=== PATIENT | female | born 1975 | race Two or more races ===

== ENCOUNTER 2018-06-28 12:13 | Outpatient (CLI) | payer OTHER | END 2018-06-28 12:20 | disposition home or self-care (01) | LOC: SONOGRAMA 12:13 | DX: N84.0 Polyp of corpus uteri (principal); N83.292 Other ovarian cyst, left side; N83.291 Other ovarian cyst, right side; N60.11 Diffuse cystic mastopathy of right breast; N60.12 Diffuse cystic mastopathy of left breast; R87.610 Atypical squamous cells of undetermined significance on cytologic smear of cervix (ASC-US); R87.810 Cervical high risk human papillomavirus (HPV) DNA test positive; N87.0 Mild cervical dysplasia; N80.1 Endometriosis of ovary; N83.9 Noninflammatory disorder of ovary, fallopian tube and broad ligament, unspecified ==